=== PATIENT | female | born 1955 | race Caucasian/White ===

== ENCOUNTER 2023-05-15 11:03 | Emergency (ER) | payer MEDICARE ==
[2023-05-15] MEDS ORDERED: Morphine 4 MG/ML VIAL ONE (12:10)
[2023-05-15 12:20] LABS: #Basophils 0.1 10x3/uL (0.0-0.2); #Eosinphils 0.2 10x3/uL (0.0-0.5); #Monocytes 0.7 10x3/uL (0.0-1.1); #Neutrophils 7.1 10x3/uL (1.5-8.4); %Basophils 0.6 % (0.0-2.0); %Lymphocytes 25.7 % (18.0-47.0); %Monocytes 6.5 % (0.0-10.0); %Neutrophils 64.9 % (40.0-75.0); Hematocrit 42.5 % (34.9-44.5); Hemoglobin 14.3 g/dL (12.0-15.5); Mean Corpuscular HGB CONC 33.6 g/dL (32.0-36.0); Mean Corpuscular Hemoglobin 28.1 pg (27.0-33.0); Mean Corpuscular Volume 83.5 fl (81.6-98.3); Platelet Count 179 10x3/uL (150-450); RBC Distribution Width 13.1 % (11.5-14.5); Red Blood Cell (RBC) Count 5.09 10x6/uL (3.90-5.03)
[2023-05-15 12:48] LABS: ALT (SGPT) 20 U/L (8-55); AST (SGOT) 26 U/L (5-34); Albumin 4.4 g/dL (3.4-4.8); Alkaline Phosphatase 92 U/L (40-110); Anion Gap 16 mmol/L (10-20); BUN (Urea Nitrogen) 16 mg/dL (9.8-20.1); Bilirubin, Total 0.4 mg/dL (0.2-1.2); Calc. Creatinine Clearance 0 mL/min (70-130); Calcium 9.7 mg/dL (7.8-10.44); Carbon Dioxide 18 mmol/L (23-31); Chloride 112 mmol/L (98-107); Estimated GFR 75; Globulin 2.5 g/dL (2.4-3.5); Glucose 98 mg/dL (80-115); Potassium 3.7 mmol/L (3.5-5.1); Protein, Total 6.9 g/dL (5.8-8.1); Sodium 142 mmol/L (136-145)
[2023-05-15 12:55] LABS: Troponin I 0.013 ng/mL (< 0.028)
[2023-05-15] MEDS ORDERED: Cyclobenzaprine 10 MG TAB ONE (13:34)
[2023-05-15] MEDS ORDERED: Ketorolac Tromethamine 30 MG/ML VIAL ONE (13:34)
== END 2023-05-15 15:48 | disposition home or self-care (01) ==
LOC: CSHERS 11:03
DX: M62.830 Muscle spasm of back (principal); I10 Essential (primary) hypertension; W19.XXXA Unspecified fall, initial encounter
CPT/HCPCS: 71045; 72100; 72170; 72192; 80053; 83735; 84443; 84484; 85025; 93005; 96372; 96374; J1885; J2270

== ENCOUNTER 2024-07-14 08:34 | Outpatient (CLI) | payer MEDICARE | END 2024-07-14 08:35 | disposition home or self-care (01) | LOC: CSHMAMMO 08:34 | PROVIDERS: ATTEND Specialist | DX: Z12.31 Encounter for screening mammogram for malignant neoplasm of breast (principal); Z80.3 Family history of malignant neoplasm of breast; Z86.000 Personal history of in-situ neoplasm of breast; Z98.890 Other specified postprocedural states | CPT/HCPCS: 77063; 77067 ==